=== PATIENT | female | born 1965 | race Caucasian/White ===

== ENCOUNTER 2017-01-24 20:48 | Emergency (ER) | payer OTHER ==
[~2017-01-24] VITALS: Ht 162.6 cm; Wt 70.5 kg
[~2017-01-24 20:48] MED LIST: ATOR20TA38 PO; CARI350T PO; CLON2TAB3 PO; OXYC-284 PO; TRAZ100T15 PO
[2017-01-24 20:53] VITALS: Ht 162.6 cm; Wt 70.5 kg
[2017-01-24] MEDS ORDERED: HYDROCODONE/APAP (5/325) TAB PO ONE (23:00)
[2017-01-25] MEDS ORDERED: morphine 10 MG INJ IM ONE
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
[2017-01-25] MEDS ORDERED: HYDR-906 PO (01:19)
[2017-01-25] MEDS ORDERED: CLON-412 PO (01:21)
[2017-01-25 01:27] VITALS: BP 133/85; PULSE 75; RESP 18
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
== END 2017-01-25 01:27 | disposition home or self-care (01) ==
LOC: FTE 20:48
DX: M54.5 Low back pain (principal); F17.210 Nicotine dependence, cigarettes, uncomplicated
CPT/HCPCS: 72131; 96372; J2270; Z7502; Z7610

== ENCOUNTER 2017-03-29 14:29 | Emergency (ER) | payer OTHER ==
[~2017-03-29] VITALS: Ht 162.6 cm; Wt 72.9 kg
[~2017-03-29 14:29] MED LIST changes: +CLON-412 PO; +HYDR-906 PO
[2017-03-29 14:47] VITALS: Ht 162.6 cm; Wt 72.9 kg
[2017-03-29] MEDS ORDERED: HYDROCODONE/APAP (5/325) TAB PO ONE (16:00)
[2017-03-29] MEDS ORDERED: CLON-412 PO (16:09)
--- NOTE | 2017-03-29 23:40 | ERD ---
ER Documentation Chief Complaint Chief Complaint Pt with back pain radiating down r leg, no injury reported. HPI 31-year-old female patient with a past medical history of chronic back pain presents to the ED complaining of a flareup with her sciatica that started last night. Reports that she normally takes Percocet and Irving. Describes the pain as a cramping sensation and rates it a 9 out of 10. States that she does have an orthopedic physician appointment on April 11, 2017. Reports that she has not been able to fill her medications as well as Klonopin for her seizures because she is in transition with seeing a new physician. Denies any recent injuries or trauma. Denies any saddle anesthesia or urine or bowel incontinence. Denies any dysuria, urgency, frequency, nausea, vomiting, diarrhea, abdominal pain, chest pain, shortness of breath. ROS All systems reviewed and are negative except as per history of present illness. Medications Home Meds Active Scripts Clonazepam* (Klonopin*) 1 Mg Tablet, 2 MG PO BID, #12 TAB Prov:CELI OTTO PA-C 03/29/17 Clonazepam* (Klonopin*) 1 Mg Tablet, 1 MG PO BID for 6 Days, TAB Prov:ANITA SON PA-C 01/25/17 Hydrocodone/Acetaminophen (Irving 5-325 Tablet) 1 Each Tablet, 1 TAB PO Q6H Y for PAIN, #7 TAB Prov:ANITA SON PA-C 01/25/17 Reported Medications Carisoprodol* (Soma*) 350 Mg Tablet, 350 MG PO TID Y for MUSCLE SPASMS, TAB 02/11/14 Oxycodone Hcl-Acetaminophen* (Percocet*) 10-325 Mg Tablet, 1 TAB PO Q6 Y for PAIN, TAB 02/11/14 Trazodone Hcl* (Trazodone Hcl*) 100 Mg Tablet, 100 MG PO HS Y for SLEEP, TAB 02/11/14 Atorvastatin Calcium* (Atorvastatin Calcium*) 20 Mg Tablet, 20 MG PO HS, TAB 02/11/14 Clonazepam* (Clonazepam*) 2 Mg Tablet, 2 MG PO BID, TAB 02/11/14 Allergies Allergies: Coded Allergies: No Known Allergy (Unverified , 06/11/14) PMhx/Soc History of Surgery: Yes (APPY) Anesthesia Reaction: No Hx Neurological Disorder: Yes (MIGRAINE RAMACHANDRAN) Hx Respiratory Disorders: No Hx Cardiac Disorders: No Hx Psychiatric Problems: Yes (ANXIETY) Hx Miscellaneous Medical Probl: Yes (HYPERCHOLESTEROLEMIA) Hx Alcohol Use: No Hx Substance Use: No Hx Tobacco Use: Yes Smoking Status: Current some day smoker Physical Exam Vitals Vital Signs Date Time Temp Pulse Resp B/P Pulse Ox O2 Delivery O2 Flow Rate FiO2 03/29/17 14:47 97.2 108 18 123/82 97 Physical Exam Const: [id number], well-nourished. In no acute distress. Head: Atraumatic, normocephalic Eyes: Normal Conjunctiva without injection ENT: Normal external ear, nose and mouth. Neck: Full range of motion. No meningismus. Resp: Clear to auscultation bilaterally. No wheezing, rhonchi, rales, or crackles. No accessory muscle use. No retractions. Cardio: Regular rate and rhythm, no murmurs Skin: No petechiae or rashes Back: No midline tenderness. No CVA tenderness. Straight leg test on the right. Ext: No cyanosis, or edema. Cap refill less than 2 seconds. Distal pulses intact bilaterally. Tenderness to palpation of the lumbar muscles. Neur: Awake and alert. Normal gait and coordination. Muscle strength 5/5. Sensation intact bilaterally. Psych: Normal Mood and Affect Results 24 hrs Current Medications Medications (Trade) Dose Ordered Sig/Levon Route PRN Reason Start Time Stop Time Status Last Admin Dose Admin Acetaminophen/ Hydrocodone Bitart (Irving (5/325)) 1 tab ONCE ONCE PO 03/29/17 16:00 03/29/17 16:01 DC 03/29/17 16:04 Procedures/MDM A 51-year-old female patient with a past medical history of chronic back pain and hyperlipidemia presents to the ED complaining of a flareup of her sciatica. Patient is afebrile and nontoxic-appearing. Patient has normal vital signs. A cures and DEJUAN report was done here in the ED on patient and she has had many refills of Percocet and Irving for her chronic back pain. This was discussed with my supervising physician, Dr. Maradiaga who agreed with the management and discharge plan. Patient will be treated here in the ED with Irving however will not be given a prescription. She however will be given a prescription for her Klonopin for her seizures. Patient is ambulating here in the ED without difficulty. Denies saddle anesthesia, numbness or tingling, urine or bowel incontinence, weakness. Low suspicion for cauda equina syndrome, cord compression, nephrolithiasis, aortic aneurysm, aortic dissection, epidural abscess, spinal hematoma, malignancy, pyelonephritis, or other emergent conditions. She was instructed that she will not receive narcotic refills for her back pain as there is high suspicion for drug-seeking behavior. Discharge medications: Klonopin Follow up with primary care physician in 1-2 days. Instructed patient to return to the ED sooner for any worsening symptoms. Patient's questions were answered. Patient understood and agreed with discharge plan. Patient discharged stable. Departure Diagnosis: Primary Impression: Chronic back pain Back pain location: back pain in unspecified location Back pain laterality: unspecified Qualified Code: M54.9 - Chronic back pain, unspecified back location, unspecified back pain laterality Condition: Stable Patient Instructions: Pain Management, Back Pain (Acute Or Chronic), Back Pain W/ Sciatica Referrals: [facility] CLINICS YOU HAVE RECEIVED A MEDICAL SCREENING EXAM AND THE RESULTS INDICATE THAT YOU DO NOT HAVE A CONDITION THAT REQUIRES URGENT TREATMENT IN THE EMERGENCY DEPARTMENT. FURTHER EVALUATION AND TREATMENT OF YOUR CONDITION CAN WAIT UNTIL YOU ARE SEEN IN YOUR DOCTORS OFFICE WITHIN THE NEXT 1-2 DAYS. IT IS YOUR RESPONSIBILITY TO MAKE AN APPOINTMENT FOR FOLOW-UP CARE. IF YOU HAVE A PRIMARY DOCTOR --you should call your primary doctor and schedule an appointment IF YOU DO NOT HAVE A PRIMARY DOCTOR YOU CAN CALL OUR PHYSICIAN REFERRAL HOTLINE AT IF YOU CAN NOT AFFORD TO SEE A PHYSICIAN YOU CAN CHOSE FROM THE FOLLOWING [facility] CLINICS [facility] [address] [facility] [address] [facility] [place] [address] [facility] [address] [facility] [address] [facility]. [facility]. [address] [facility] YOU HAVE RECEIVED A MEDICAL SCREENING EXAM AND THE RESULTS INDICATE THAT YOU DO NOT HAVE A CONDITION THAT REQUIRES URGENT TREATMENT IN THE EMERGENCY DEPARTMENT. FURTHER EVALUATION AND TREATMENT OF YOUR CONDITION CAN WAIT UNTIL YOU ARE SEEN IN YOUR DOCTORS OFFICE WITHIN THE NEXT 1-2 DAYS. IT IS YOUR RESPONSIBILITY TO MAKE AN APPOINTMENT FOR FOLOW-UP CARE. IF YOU HAVE A PRIMARY DOCTOR --you should call your primary doctor and schedule and appointment IF YOU DO NOT HAVE A PRIMARY DOCTOR YOU CAN CALL OUR PHYSICIAN REFERRAL HOTLINE AT . IF YOU CAN NOT AFFORD TO SEE A PHYSICIAN YOU CAN CHOSE FROM THE FOLLOWING [facility] INSTITUTIONS: [facility] [address] [place] [address] [facility] [address] [place] [address] [facility] [address] [place] [address] [facility] URGENT CARE/SPECIALTIES Additional Instructions: FOLLOW UP WITH YOUR PRIMARY CARE PHYSICIAN TOMORROW for refills on your medications and further evaluation with an orthopedic physician for your chronic back pain. Return to this facility if you are not improving as expected. CELI OTTO PA-C Mar 29, 2017 23:40
== END 2017-03-29 18:11 | disposition home or self-care (01) ==
LOC: FTE 14:29
DX: M54.9 Dorsalgia, unspecified (principal); F17.210 Nicotine dependence, cigarettes, uncomplicated
CPT/HCPCS: Z7502; Z7610; 99283